=== PATIENT | male | born 1960 | race African-American/Black ===

== ENCOUNTER 2021-10-29 15:17 | Inpatient (IN) | payer OTHER ==
[2021-10-29] MEDS ORDERED: MAGNESIUM HYDROX 2400MG/30ML ORAL SUSPENSION 30 ML CUP PO PRN (15:49)
[2021-10-29] MEDS ORDERED: LOPERAMIDE HCL 2 MG CAPSULE PO PRN (15:49)
[2021-10-29] MEDS ORDERED: BENZOCAINE/MENTHOL (CHLORASEPTIC ) LOZENGE MM PRN (15:49)
[2021-10-29] MEDS ORDERED: MAG HYDROX/AL HYDROX/SIMETH 30 ML UNIT-DOSE CUP PO PRN (15:49)
[2021-10-29] MEDS ORDERED: IBUPROFEN 400 MG TABLET (FP) PO PRN (15:49)
[2021-10-29] MEDS ORDERED: ACETAMINOPHEN 325 MG TABLET (FP) PO PRN (15:49)
[2021-10-29] MEDS ORDERED: ONDANSETRON *ODT* 4 MG TABLET SL PRN (15:49)
[2021-10-29] MEDS ORDERED: IBUPROFEN 600 MG TABLET (FP) PO PRN (15:49)
[2021-10-29] MEDS ORDERED: methaDONE HCL 10 MG TABLET (FOR DETOX USE ONLY) PO ONE (15:49)
[2021-10-29] MEDS ORDERED: NALOXONE HCL (KLOXXADO) 8 MG SPRAY NS PRN (15:49)
[2021-10-29] MEDS ORDERED: NICOTINE 10 MG CARTRIDGE (INHALER) IH PRN (15:49)
[2021-10-29] MEDS ORDERED: DICYCLOMINE HCL 10 MG CAPSULE PO PRN (15:49)
[2021-10-29] MEDS ORDERED: BISMUTH SUBSALICYLATE 524 MG/30 ML PO PRN (15:49)
[2021-10-29] MEDS ORDERED: MAGNESIUM CITRATE 300 ML BOTTLE PO PRN (15:49)
[2021-10-29 16:18] VITALS: BMI 28.5
[2021-10-29] MEDS ORDERED: hydrOXYzine PAMOATE 25 MG CAPSULE (FP) PO SCH (18:00)
[2021-10-29] MEDS: PRENATAL VITAMINS W/ FOLIC ACID TABLET (FP) PO SCH (18:48)
[2021-10-29] MEDS: MELATONIN 5 MG TABLETS PO SCH (22:26)
[2021-10-29] MEDS: THIAMINE HCL 100 MG TABLET (FP) PO SCH (22:26)
[2021-10-30] MEDS ORDERED: methaDONE HCL 10 MG TABLET (FOR DETOX USE ONLY) ONE (09:41)
[2021-10-30 10:14] LABS: HEMATOCRIT 38.5 % (35.4-49); HEMOGLOBIN 12.9 GM/dL (11.7-16.9); MCH 28.2 pg (25.7-33.7); MCHC 33.7 g/dl (32.0-35.9); MEAN CELL VOLUME 83.8 fl (80-96); MEAN PLT VOLUME 9.7 fl (7.5-11.1); PLATELET COUNT 187 10^3/uL (134-434); RBC 4.59 M/mm3 (4.00-5.60); RDW 14.5 % (11.9-15.9); WHITE BLOOD COUNT 5.9 K/mm3 (4.0-10.0)
[2021-10-30] MEDS: LISINOPRIL 10 MG TABLET PO SCH ×2 (10:33→23:32)
[2021-10-30] MEDS: PRENATAL VITAMINS W/ FOLIC ACID TABLET (FP) PO SCH (10:33)
[2021-10-30] MEDS: METHOCARBAMOL 500 MG TABLET PO PRN ×2 (10:33→17:29)
[2021-10-30] MEDS: HYDROCHLOROTHIAZIDE 25 MG TABLET (FP) PO SCH (10:33)
[2021-10-30] MEDS: NICOTINE 14 MG/24 HOURS TOPICAL PATCH TD SCH (10:36)
[2021-10-30 10:50] LABS: ALBUMIN 3.2 g/dl (3.4-5.0); BLOOD UREA NITROGEN 28.2 mg/dL (7-18)
[2021-10-30 10:51] LABS: CALCIUM 8.9 mg/dL (8.5-10.1)
[2021-10-30 10:53] LABS: CREATININE 2.1 mg/dL (0.55-1.3)
[2021-10-30 10:54] LABS: TOT PROT 6.4 g/dl (6.4-8.2)
[2021-10-30 10:55] LABS: BILIRUBIN,TOTAL 0.6 mg/dL (0.2-1)
[2021-10-30] MEDS: amLODIPine BESYLATE 10 MG TABLET (FP) PO SCH (15:54)
[2021-10-30] MEDS: cloNIDine HCL 0.1 MG TABLET PO PRN (17:29)
[2021-10-30] MEDS: THIAMINE HCL 100 MG TABLET (FP) PO SCH (23:32)
[2021-10-30] MEDS: traZODone HCL 50 MG TABLET (FP) PO SCH (23:32)
[2021-10-30] MEDS: MELATONIN 5 MG TABLETS PO SCH (23:32)
[2021-10-31] MEDS ORDERED: methaDONE HCL 10 MG TABLET (FOR DETOX USE ONLY) PO ONE (10:00)
[2021-10-31] MEDS: PRENATAL VITAMINS W/ FOLIC ACID TABLET (FP) PO SCH (10:22)
[2021-10-31] MEDS: LISINOPRIL 10 MG TABLET PO SCH (10:23)
[2021-10-31] MEDS: amLODIPine BESYLATE 10 MG TABLET (FP) PO SCH (10:23)
[2021-10-31] MEDS: HYDROCHLOROTHIAZIDE 25 MG TABLET (FP) PO SCH (10:23)
[2021-10-31] MEDS: METHOCARBAMOL 500 MG TABLET PO PRN ×2 (10:23→20:48)
[2021-10-31] MEDS: NICOTINE 14 MG/24 HOURS TOPICAL PATCH TD SCH (10:24)
[2021-10-31] MEDS: cloNIDine HCL 0.1 MG TABLET PO PRN ×2 (13:25→20:48)
[2021-10-31] MEDS: ACETAMINOPHEN 325 MG TABLET (FP) PO PRN (13:25)
[2021-10-31] MEDS ORDERED: BACLOFEN 10 MG TABLET (FP) PO ONE (14:00)
[2021-10-31] MEDS ORDERED: hydrOXYzine PAMOATE 50 MG CAPSULE (FP) PO ONE (21:10)
[2021-11-01] MEDS: THIAMINE HCL 100 MG TABLET (FP) PO SCH (00:22)
[2021-11-01] MEDS: traZODone HCL 50 MG TABLET (FP) PO SCH (00:22)
[2021-11-01] MEDS: MELATONIN 5 MG TABLETS PO SCH (00:22)
[2021-11-01] MEDS: LISINOPRIL 10 MG TABLET PO SCH ×2 (00:22→10:47)
[2021-11-01] MEDS ORDERED: diazePAM 5 MG TABLET PO PRN (08:41)
[2021-11-01] MEDS ORDERED: methaDONE HCL 10 MG TABLET (FOR DETOX USE ONLY) ONE (09:16)
[2021-11-01] MEDS: PRENATAL VITAMINS W/ FOLIC ACID TABLET (FP) PO SCH (10:46)
[2021-11-01] MEDS: HYDROCHLOROTHIAZIDE 25 MG TABLET (FP) PO SCH (10:47)
[2021-11-01] MEDS: amLODIPine BESYLATE 10 MG TABLET (FP) PO SCH (10:47)
[2021-11-01] MEDS: NICOTINE 14 MG/24 HOURS TOPICAL PATCH TD SCH (10:47)
[2021-11-01] MEDS: ACETAMINOPHEN 325 MG TABLET (FP) PO PRN (12:44)
[2021-11-01 12:59] VITALS: BP 151/115; PULSE 74; TEMP 96.9
[2021-11-01 13:32] LABS: BLOOD UREA NITROGEN 23.6 mg/dL (7-18)
[2021-11-01 13:34] LABS: CREATININE 2.1 mg/dL (0.55-1.3)
[2021-11-02] MEDS ORDERED: methaDONE HCL 10 MG TABLET (FOR DETOX USE ONLY) PO ONE (10:00)
== END 2021-11-01 13:46 | disposition left against medical advice (07) | DRG 770 ==
LOC: YASAS 15:17 → Y6N 18:15
PROVIDERS: ADMIT Allergy & Immunology; ATTEND Surgery
PROC: HZ2ZZZZ Detoxification Services for Substance Abuse Treatment (ICD-10-PCS; principal; 2021-10-29)
DX: F11.23 Opioid dependence with withdrawal (principal); F14.20 Cocaine dependence, uncomplicated; F12.20 Cannabis dependence, uncomplicated; F17.213 Nicotine dependence, cigarettes, with withdrawal; F33.1 Major depressive disorder, recurrent, moderate; F19.282 Other psychoactive substance dependence with psychoactive substance-induced sleep disorder; F19.24 Other psychoactive substance dependence with psychoactive substance-induced mood disorder; F41.9 Anxiety disorder, unspecified; I10 Essential (primary) hypertension; M54.50 Low back pain, unspecified; G89.29 Other chronic pain; Z89.421 Acquired absence of other right toe(s); Z88.0 Allergy status to penicillin; Z91.014 Allergy to mammalian meats; Z59.01 Sheltered homelessness; Z56.0 Unemployment, unspecified
CPT/HCPCS: 36415; 71046-TC-FY; 80053; 82565; 84520; 85027; 86593; 86780; 93005; 93010; C9803-CS; J0475; J0735; U0003; U0005

== ENCOUNTER 2021-12-30 18:57 | Inpatient (IN) | payer OTHER ==
[2021-12-30 20:45] VITALS: BMI 25.7
[2021-12-31] MEDS ORDERED: IBUPROFEN 600 MG TABLET (FP) PO PRN (01:56)
[2021-12-31] MEDS ORDERED: NALOXONE HCL (KLOXXADO) 8 MG SPRAY NS PRN (01:56)
[2021-12-31] MEDS ORDERED: PROCHLORPERAZINE MALEATE 5 MG TABLET PO PRN (01:56)
[2021-12-31] MEDS ORDERED: guaiFENesin 200 MG/10 ML 10 ML UNIT-DOSE CUPS PO PRN (01:56)
[2021-12-31] MEDS ORDERED: MAGNESIUM HYDROX 2400MG/30ML ORAL SUSPENSION 30 ML CUP PO PRN (01:56)
[2021-12-31] MEDS ORDERED: MAG HYDROX/AL HYDROX/SIMETH 30 ML UNIT-DOSE CUP PO PRN (01:56)
[2021-12-31] MEDS ORDERED: P-EPHED 60MG/TRIPROLIDI 2.5MG TABLET PO PRN (01:56)
[2021-12-31] MEDS ORDERED: DICYCLOMINE HCL 10 MG CAPSULE PO PRN (01:56)
[2021-12-31] MEDS ORDERED: BISMUTH SUBSALICYLATE 524 MG/30 ML PO PRN (01:56)
[2021-12-31] MEDS ORDERED: METHOCARBAMOL 500 MG TABLET PO PRN (01:56)
[2021-12-31] MEDS ORDERED: NALOXONE HCL 0.4 MG/ML VIAL IM PRN (01:56)
[2021-12-31] MEDS ORDERED: ACETAMINOPHEN 325 MG TABLET (FP) PO PRN ×2 (01:56)
[2021-12-31] MEDS ORDERED: NICOTINE POLACRILEX 2 MG GUM BUC PRN (01:56)
[2021-12-31] MEDS ORDERED: MAGNESIUM CITRATE 300 ML BOTTLE PO PRN (01:56)
[2021-12-31] MEDS ORDERED: BENZOCAINE/MENTHOL (CHLORASEPTIC ) LOZENGE MM PRN (01:56)
[2021-12-31] MEDS ORDERED: IBUPROFEN 400 MG TABLET (FP) PO PRN (01:56)
[2021-12-31] MEDS ORDERED: LOPERAMIDE HCL 2 MG CAPSULE PO PRN (01:56)
[2021-12-31] MEDS ORDERED: cloNIDine HCL 0.1 MG TABLET PO ONE ×3 (02:03→12:59)
[2021-12-31] MEDS: PRENATAL VITAMINS W/ FOLIC ACID TABLET (FP) PO SCH (09:29)
[2021-12-31] MEDS ORDERED: diazePAM 5 MG TABLET PO PRN (10:02)
[2021-12-31] MEDS ORDERED: methaDONE HCL 10 MG TABLET (FOR DETOX USE ONLY) PO ONE (10:02)
[2021-12-31 10:49] LABS: HEMATOCRIT 41.4 % (35.4-49); HEMOGLOBIN 13.6 GM/dL (11.7-16.9); MCH 27.4 pg (25.7-33.7); MCHC 32.8 g/dl (32.0-35.9); MEAN CELL VOLUME 83.7 fl (80-96); MEAN PLT VOLUME 9.4 fl (7.5-11.1); PLATELET COUNT 298 10^3/uL (134-434); RBC 4.94 M/mm3 (4.00-5.60); RDW 14.2 % (11.9-15.9); WHITE BLOOD COUNT 9.2 K/mm3 (4.0-10.0)
[2021-12-31] MEDS: HYDROCHLOROTHIAZIDE 12.5 MG CAPSULE (FP) PO SCH (11:15)
[2021-12-31] MEDS: NICOTINE 14 MG/24 HOURS TOPICAL PATCH TD SCH (11:17)
[2021-12-31] MEDS: diazePAM 5 MG TABLET PO SCH ×3 (11:17→22:52)
[2021-12-31 11:50] LABS: CALCIUM 9.1 mg/dL (8.5-10.1)
[2021-12-31 11:51] LABS: ALBUMIN 3.2 g/dl (3.4-5.0)
[2021-12-31 11:54] LABS: CREATININE 1.7 mg/dL (0.55-1.3)
[2021-12-31 11:56] LABS: BILIRUBIN,TOTAL 0.7 mg/dL (0.2-1); TOT PROT 6.7 g/dl (6.4-8.2)
[2021-12-31] MEDS ORDERED: amLODIPine BESYLATE 5 MG TABLET (FP) PO ONE (12:59)
[2021-12-31] MEDS: cloNIDine HCL 0.1 MG TABLET PO PRN (19:19)
[2021-12-31] MEDS: THIAMINE HCL 100 MG TABLET (FP) PO SCH (22:52)
[2021-12-31] MEDS: MELATONIN 5 MG TABLETS PO SCH (22:52)
[2022-01-01] MEDS: diazePAM 5 MG TABLET PO SCH ×4 (05:15→22:49)
[2022-01-01] MEDS: cloNIDine HCL 0.1 MG TABLET PO PRN ×2 (06:12→17:29)
[2022-01-01] MEDS: HYDROCHLOROTHIAZIDE 12.5 MG CAPSULE (FP) PO SCH (10:12)
[2022-01-01] MEDS: PRENATAL VITAMINS W/ FOLIC ACID TABLET (FP) PO SCH (10:12)
[2022-01-01] MEDS: NICOTINE 14 MG/24 HOURS TOPICAL PATCH TD SCH (10:14)
[2022-01-01] MEDS: THIAMINE HCL 100 MG TABLET (FP) PO SCH (22:49)
[2022-01-01] MEDS: MELATONIN 5 MG TABLETS PO SCH (22:51)
[2022-01-02] MEDS: diazePAM 5 MG TABLET PO SCH ×2 (05:48→13:27)
[2022-01-02] MEDS: cloNIDine HCL 0.1 MG TABLET PO PRN (05:49)
[2022-01-02] MEDS ORDERED: amLODIPine BESYLATE 10 MG TABLET (FP) PO SCH (10:00)
[2022-01-02] MEDS ORDERED: methaDONE HCL 10 MG TABLET (FOR DETOX USE ONLY) PO ONE (10:00)
[2022-01-02] MEDS: NICOTINE 14 MG/24 HOURS TOPICAL PATCH TD SCH (10:06)
[2022-01-02] MEDS: HYDROCHLOROTHIAZIDE 12.5 MG CAPSULE (FP) PO SCH (10:06)
[2022-01-02] MEDS: PRENATAL VITAMINS W/ FOLIC ACID TABLET (FP) PO SCH (10:06)
[2022-01-02 13:18] VITALS: RESP 18
[2022-01-02 14:58] LABS: BLOOD UREA NITROGEN 28.6 mg/dL (7-18)
[2022-01-02 15:02] LABS: CREATININE 1.8 mg/dL (0.55-1.3)
[2022-01-02 16:52] VITALS: BP 145/93; PULSE 89; TEMP 98
[2022-01-02] MEDS ORDERED: traZODone HCL 50 MG TABLET (FP) PO SCH (22:00)
[2022-01-03] MEDS ORDERED: diazePAM 5 MG TABLET PO SCH (06:00)
[2022-01-04] MEDS ORDERED: diazePAM 5 MG TABLET PO ONE (06:00)
[2022-01-04] MEDS ORDERED: methaDONE HCL 10 MG TABLET (FOR DETOX USE ONLY) PO ONE (10:00)
== END 2022-01-02 17:32 | disposition left against medical advice (07) | DRG 770 ==
LOC: YASAS 18:57 → Y6N 12-31 02:32
PROVIDERS: ADMIT Allergy & Immunology; ATTEND Allergy & Immunology
PROC: HZ2ZZZZ Detoxification Services for Substance Abuse Treatment (ICD-10-PCS; principal; 2021-12-31)
DX: F11.23 Opioid dependence with withdrawal (principal); F10.230 Alcohol dependence with withdrawal, uncomplicated; F14.20 Cocaine dependence, uncomplicated; F17.210 Nicotine dependence, cigarettes, uncomplicated; F19.24 Other psychoactive substance dependence with psychoactive substance-induced mood disorder; F19.282 Other psychoactive substance dependence with psychoactive substance-induced sleep disorder; F19.280 Other psychoactive substance dependence with psychoactive substance-induced anxiety disorder; I10 Essential (primary) hypertension; M54.59 Other low back pain; G89.29 Other chronic pain; Z89.421 Acquired absence of other right toe(s); R01.1 Cardiac murmur, unspecified; Z88.0 Allergy status to penicillin; Z91.14 Patient's other noncompliance with medication regimen; Z86.19 Personal history of other infectious and parasitic diseases; Z56.0 Unemployment, unspecified; Z59.00 Homelessness unspecified
CPT/HCPCS: 36415; 80053; 82565; 84520; 85027; 86593; 86780; 93005; 93010; C9803-CS; J0735; U0003; U0005

== ENCOUNTER 2021-12-30 23:25 | Emergency (ER) | payer OTHER ==
[2021-12-30 23:44] VITALS: BP 167/92; PULSE 61; RESP 18; TEMP 98.1; BMI 25.7
== END 2021-12-31 02:14 ==
LOC: JER 23:25
DX: I10 Essential (primary) hypertension (principal)
CPT/HCPCS: 99282-25